=== PATIENT | male | born 1935 | race Caucasian/White ===

== ENCOUNTER 2016-06-23 20:59 | Inpatient (IN) | payer MEDICARE ==
[~2016-06-23] VITALS: Ht 175.3 cm; Wt 76.0 kg
--- NOTE | ~2016-06-23 | FD ---
ADMIT: 06/23/2016 RM/LOC: 510 [facility] MR#: [id number] [address] [address] NAIMAROD [address] [place] [address] Final Diagnosis SEX: M AGE: 81 : 1935 ADMISSION DATE: 06/23/2016 DISCHARGE DATE: 06/25/2016 REASON FOR HOSPITALIZATION/FINAL DIAGNOSES: 1. Acute influenza. 2. Chronic kidney disease. 3. Hypokalemia. 4. Hypothyroidism. Delvin Rivas DO/ modl JOB #: [id number] CC: Delvin Rivas DO, Attending Physician Delvin Rivas DO, Family Physician
--- NOTE | 2016-06-25 09:10 | ER ---
ADMIT: 06/23/2016 RM/LOC: 510 [facility] MR#: [id number] [address] [address] ROD MCNAMARA [address] [place] [address] Emergency Room Report SEX: M AGE: 81 : 1935 DATE: 06/23/2016 TIME: 2058 Please refer to my T-sheet for complete H and P. HISTORY OF PRESENT ILLNESS: Briefly, the patient is an 81-year-old who comes in with general weakness, cough, not feeling well, fever. It has been going on for about 3 or 4 days. He just cannot hardly get up and around he states. His significant other is here with him. She states that he is just getting weaker and weaker. He coughs all time, but he has been coughing a lot worse recently. PHYSICAL EXAMINATION: VITAL SIGNS: Blood pressure 150/77, pulse 111, respirations 20, temp 101.7, saturating 92%. GENERAL: No acute distress. HEENT: Mild rhinorrhea. THROAT: Clear. NECK: Soft, supple. No meningismus. LUNGS: Coarse with expiratory wheezes. HEART: Tachy. ABDOMEN: Soft. SKIN: No rash. EMERGENCY DEPARTMENT COURSE: We did a sepsis protocol, gave him 1 g of Tylenol. Gave him the sepsis fluids IV. His CBC was normal except for platelets 136. Chemistries normal except potassium 3.6, BUN 33, glucose 113, creatinine 1.5. Cardiac enzymes are negative. Influenza B was positive. Chest x-ray revealed left lower lobe atelectasis. EKG was sinus rhythm at 110. No hyperacute changes. I started sepsis pathway, gave him Tamiflu and Levaquin, he will be admitted. ASSESSMENT: 1. Acute influenza B. 2. Left lower lobe pneumonia. 3. Weakness and early sepsis. PLAN: Admit to the hospital under the care of Dr. Rivas. Delfino Cesar MD/ rajiv JOB #: [id number] CC: Delvin Rivas DO, Attending Physician Delvin Rivas DO, Family Physician
[2016-06-26] MEDS ORDERED: DELTASONE DPS5 MG PO (06:23)
[2016-06-26] MEDS ORDERED: MULTIVITAMINS1 EAC1 PO (06:23)
[2016-06-26] MEDS ORDERED: TRIAMTERENE-HC1 EACH PO (06:24)
[2016-06-26] MEDS ORDERED: LEVOTHYROXINE50 MCG PO (06:24)
[2016-06-26] MEDS ORDERED: OCUVITE SOFTGE1 EACH PO (06:25)
[2016-06-26] MEDS ORDERED: TAMIFLU30 MG PO (06:25)
--- NOTE | 2016-07-08 08:17 | HP ---
ADMIT: 06/23/2016 RM/LOC: 510 [facility] MR#: [id number] [address] [address] ROD MCNAMARA [address] [place] [address] History and Physical SEX: M AGE: 81 : 1935 DATE OF SERVICE: 06/24/2016 REASON FOR HOSPITALIZATION: Influenza. HISTORY OF PRESENT ILLNESS: This is an 81-year-old, male patient, who came into the emergency room after three days of general cough, fever, and weakness. He reports that he did not receive a flu vaccination in the fall of 2015 and we have diagnosed him with influenza B with presumed underlying pneumonia. However, he does have a chronically elevated right hemidiaphragm. He also has a history of coronary artery disease, psoriasis, gout, cholecystectomy, and hypertension. MEDICATIONS: His medications are being compiled. I do not have a list to review at this time. SOCIAL HISTORY: He is . Does not smoke. FAMILY HISTORY: Noncontributory. REVIEW OF SYSTEMS: No chest pain. He has had cough, some shortness of breath. No nausea, vomiting, palpitations, diarrhea, constipation, or bleeding. PHYSICAL EXAMINATION: GENERAL: He is pleasant and reports that he is better. VITAL SIGNS: His temperature max 101.2. Temperature current 99.6. HEART: Regular. LUNGS: Bibasilar rales. ABDOMEN: Soft and nontender. EXTREMITIES: No edema. LABORATORY DATA: Potassium 3.6, creatinine 1.5. Hemoglobin 15.8, white count 7.5. Influenza B testing is positive. Chest x-ray, elevated right hemidiaphragm. IMPRESSION: 1. Acute influenza with renal insufficiency. 2. Dehydration. PLAN: Admit, hydrate, Tamiflu to cover for bacterial infection/pneumonia. Recheck creatinine and chest x-ray and monitor. Delvin Rivas DO/ modl JOB #: [id number] CC: Delvin Rivas, Attending Physician Delvin Rivas, Family Physician
== END 2016-06-25 11:40 | disposition home or self-care (01) | DRG 195 ==
LOC: ER 20:59 → 5MS 22:07 → ER 22:07 → 5MS 06-25 11:40
PROVIDERS: ADMIT Internal Medicine
DX: J10.00 Influenza due to other identified influenza virus with unspecified type of pneumonia (principal); E86.0 Dehydration; I25.10 Atherosclerotic heart disease of native coronary artery without angina pectoris; L40.9 Psoriasis, unspecified; M10.9 Gout, unspecified; I10 Essential (primary) hypertension; Z66 Do not resuscitate

== ENCOUNTER 2016-07-04 23:05 | Emergency (ER) | payer MEDICARE ==
[~2016-07-04 23:05] MED LIST: DELTASONE DPS5 MG PO; LEVOTHYROXINE50 MCG PO; MULTIVITAMINS1 EAC1 PO; OCUVITE SOFTGE1 EACH PO; TAMIFLU30 MG PO; TRIAMTERENE-HC1 EACH PO
--- NOTE | 2016-07-05 06:38 | ER ---
ADMIT: 07/04/2016 RM/LOC: ER [facility] MR#: [id number] [address] [address] ROD MCNAMARA [address] [place] [address] Emergency Room Report SEX: M AGE: 81 : 1935 DATE: 07/04/2016 HISTORY OF PRESENT ILLNESS: The patient is an 81-year-old male complaining of acute onset of lower abdominal pain past 2 hours, associated with nausea, but denies any fevers, chills, vomiting, diarrhea, anorexia or prior history of diverticulitis. States his last bowel movement was approximately 3 days ago, hospitalized 2 weeks ago for influenza. PHYSICAL EXAMINATION: Exam remarkable for nontoxic, afebrile male, acutely tender suprapubically. LABORATORY AND X-RAY DATA: Bladder scan, less than 200 mL. WBC 15.2, lactic 2.3, CRP 0.78. Creatinine 1.5, glucose 127. UA negative, troponin less than 0.015. Procalcitonin less than 0.05. MEDICAL DECISION MAKING: EKG showed sinus rhythm without ST-T or Q-wave change. Chest x-ray showed elevated right hemidiaphragm. No infiltrates. CT chest, abdomen, pelvis without contrast confirms no pneumonia, but inflammatory changes noted in the lower sigmoid colon with extensive diverticulosis. Patient was treated for diverticulitis with Invanz 1 g IV piggyback, Dilaudid 0.5 mg IV push for pain with slight improvement. Acetaminophen 1 g IV piggyback with marked improvement. Home with Cipro 500 mg b.i.d. x7 days and Flagyl 500 mg t.i.d. x7 days. Clear liquid diet. Advance as tolerated. Tylenol and Motrin as needed. Follow up Dr. Rivas next week. Return to ED if needed. Derrick Colmenares MD/ rajiv JOB #: [id number] CC: Derrick Colmenares MD, Attending Physician Delvin Rivas DO, Family Physician Delvin Rivas DO
== END 2016-07-05 04:05 | disposition home or self-care (01) ==
LOC: ER 23:05
PROC: 0T9B30Z Drainage of Bladder with Drainage Device, Percutaneous Approach (ICD-10-PCS; principal; 2016-07-04)
DX: K57.92 Diverticulitis of intestine, part unspecified, without perforation or abscess without bleeding (principal); I10 Essential (primary) hypertension; Z87.01 Personal history of pneumonia (recurrent)

== ENCOUNTER 2016-07-06 02:26 | Inpatient (IN) | payer MEDICARE ==
[~2016-07-06] VITALS: Ht 175.3 cm; Wt 82.8 kg
--- NOTE | 2016-07-06 20:02 | ER ---
ADMIT: 07/06/2016 RM/LOC: 420 [facility] MR#: [id number] [address] [address] ROD MCNAMARA [address], [place] [address] Emergency Room Report SEX: M AGE: 81 : 1935 DATE: 07/06/2016 CHIEF COMPLAINT: Abdominal pain. HISTORY OF PRESENT ILLNESS: The patient is an 81-year-old male with diverticulitis seen by this physician yesterday. CT confirmed sigmoid diverticulitis. Tolerated Invanz in Department, home with Cipro and Flagyl. Only pain medication recommended was non-steroidal and Tylenol. The patient states the pain is escalated, decreased oral intake. He was hospitalized briefly 06/23 for influenza and pneumonia. PAST MEDICAL HISTORY: ALLERGIES: NONE. MEDICATIONS: Please see nurse's MAR. ILLNESSES: 1. Coronary artery disease. 2. Hypertension. 3. GERD. 4. DJD. 5. Hypothyroidism. 6. Rheumatoid arthritis. OPERATIONS: 1. Cholecystectomy. 2. Hernia repair. 3. Cardiac bypass. 4. T and A. SOCIAL HISTORY: . Retired. Nonsmoker nondrinker. No illicit drugs. FAMILY HISTORY: Negative per chart review. REVIEW OF SYSTEMS: A 12-point review of systems negative. For all other systems, illnesses, or operations except as outlined above. PHYSICAL EXAMINATION: VITAL SIGNS: Temp 98.4, pulse 98, respirations 18, BP 140/70, SaO2 of 85% on room air. GENERAL: Toxic appearing. Non-diaphoretic without jaundice or icterus. HEENT: Normocephalic. No evidence of epistaxis, rhinorrhea, or otorrhea. NECK: Supple without lymphadenopathy or thyromegaly. CHEST: Clear. Breath sounds equal. HEART: Regular rate and rhythm without murmur, gallop, or edema. ABDOMEN: Soft, tender in right lower quadrant without mass or megaly. Bowel sounds hypoactive. EXTREMITIES: No evidence of Homans sign, synovitis, or dermatitis. NEURO: EOMI. PERRLA. No evidence of drift, dysarthria, or ataxia. Gait; ADMIT: 07/06/2016 RM/LOC: 420 [facility] MR#: [id number] [id number] [address] YOSSIROD RAMIREZ [address] [place] [address] Emergency Room Report SEX: M AGE: 81 : 1935 two person assist due to weakness. MEDICAL DECISION MAKING: The patient appears acutely ill compared to yesterday. CT with contrast shows diverticulitis as well as moderate amount of free air. The patient was covered with vancomycin, cefepime, and metronidazole. NG in place. Chest x-ray confirms an NG in stomach. WBC 23.4 up from 13,000 yesterday. CRP 18.2, up from 0.78 yesterday. Creatinine 1.8, lactic 3.7 up from 2.3 yesterday. INR 1.2, lipase 93, procalcitonin 1.55, up from less than 0.05 yesterday, troponin 0.082, BNP 1829. ABG's on 4 L, pH 7.4, pCO2 39.4, pO2 66. BN-peptide 1829, troponin 0.082. EKG shows sinus tachycardia without ST-T or Q wave change. Discussed findings with Dr. Rivas, who agreed and gave orders to nursing staff. Notified Dr. Mathews of admission, and possible need for operative intervention. DIAGNOSIS: Acute peritonitis associated with diverticulitis with perforation. RECOMMENDATION: Admit inpatient PCU for Dr. Rivas. CONDITION: Fair. Patient is a full code. Derrick Colmenares MD/ guccil JOB #: [id number] CC: Jenifer Rivas DO, Attending Physician Delvin Rivas DO, Family Physician Derrick Colmenares MD/ rajiv JOB #: [id number] CC: Delvin Rivas DO, Attending Physician Delvin Rivas DO, Family Physician DO Renan Funk MD
--- NOTE | 2016-07-09 07:57 | HP ---
ADMIT: 07/06/2016 RM/LOC: 420 [facility] MR#: [id number] [address] [address] ROD MCNAMARA [address], [place] [address] History and Physical SEX: M AGE: 81 : 1935 DATE OF SERVICE: HISTORY OF PRESENT ILLNESS: Mr. Mcnamara is an 81-year-old white gentleman, who is a patient of Dr. Delvin Rivas. He presents to the emergency room with abdominal pain, and in evaluation, he was found to have acute sigmoid diverticulosis as well as concerns about perforation and abscess. PAST MEDICAL HISTORY: He has a past medical history of influenza within the last two weeks, history of coronary disease, psoriasis, history of chronic prednisone usage for arthritis, gout, hypertension, status post cholecystectomy, history of known diverticular disease, he has history of hypothyroidism. SOCIAL HISTORY: He is . He does not smoke. FAMILY HISTORY: Noncontributory. MEDICATIONS: 1. Maxzide 25 mg daily. 2. Prednisone 5 mg daily. 3. Levothyroxine 50 mcg daily. 4. Ocuvite. 5. Men's vitamin. REVIEW OF SYSTEM: As per his HPI. With progressive abdominal pain, abdominal discomfort. No known fever. PHYSICAL EXAMINATION: GENERAL: He is alert. HEENT: Exam is normal. HEART: Regular rhythm. LUNGS: Clear, but diminished to auscultation. ABDOMEN: Rounded and tender to touch. It is not soft. Hypoactive bowel sounds. EXTREMITIES: No evidence of edema. ASSESSMENT: Admission of an elderly 81-year-old white gentleman with evidence of: 1. Acute diverticular disease with questionable perforation and possible abscess. 2. History of recent influenza. ADMIT: 07/06/2016 RM/LOC: 420 [facility] MR#: [id number] [address] [address] ROD MCNAMARA [address] [place] [address] History and Physical SEX: M AGE: 81 : 1935 3. History of known coronary disease. 4. History of psoriasis. 5. History of chronic steroid use. 6. History of gout. 7. History of hypertension. 8. History of known diverticular disease. PLAN: At this time, we will admit to [facility], aggressive IV hydration. Surgical consultation, IV antibiotics, get rest in addition stress dose steroids. We will hold his normal routine medications at this time as he is n.p.o. and has an NG tube in place. We will hold his thyroid medicine at this time, resume as appropriate. Kamryn Lechuga MD/ rajiv JOB #: [id number] CC: Delvin Rivas, Attending Physician Delvin Rivas, Family Physician
--- NOTE | 2016-07-11 07:13 | CO ---
ADMIT: 07/06/2016 RM/LOC: 420 [facility] MR#: [id number] [address] [address] ROD MCNAMARA [address] [place] [address] Consultation SEX: M AGE: 81 : 1935 DATE OF CONSULTATION: 07/06/2016 ATTENDING PHYSICIAN: Delvin Rivas CONSULTING PHYSICIAN: Renan Mathews MD HISTORY OF PRESENT ILLNESS: This is an 81-year-old male seen in surgical consultation for Dr. Rivas with complaints of abdominal pain. The patient had the onset of pain 2 days ago. He came to the ER at that point with that complaint. He underwent a CT scan, which demonstrated diverticulitis. He received IV antibiotic therapy and was discharged on oral therapy. The pain worsened within 24 hours to a severe degree. He came to the ER with that complaint. Re-evaluation by CT scan demonstrated small amount of pneumoperitoneum. He also had a leukocytosis at that point and a lactic acidosis. He received IV antibiotic therapy in the ER. IV fluid resuscitation was initiated, and he was admitted with calls placed for consultation. This morning after those measures, he does feel better. He reports his pain is improved this morning from what it was last night. He has remained hemodynamically stable since his admission. PAST MEDICAL HISTORY: Coronary artery disease, gastroesophageal reflux disease, hypertension, degenerative joint disease, and rheumatoid arthritis. PAST SURGICAL HISTORY: Cholecystectomy, hernia repair, coronary artery bypass grafting, tonsillectomy with adenoidectomy. ALLERGIES: NO KNOWN MEDICAL ALLERGIES. CURRENT MEDICATIONS: 1. Oral steroid. 2. Multivitamin. SOCIAL HISTORY: Denies currently smoking or drinking significant alcohol. REVIEW OF SYSTEMS: He does additionally describe nausea associated with the abdominal pain. A 10-point review of systems is otherwise negative for recent change. FAMILY HISTORY: Noncontributory. PHYSICAL EXAMINATION: GENERAL: Rod is alert, oriented, and in no acute distress currently. He has a nasogastric tube in place. VITAL SIGNS: Stable since admission, and he is not tachycardic. Pupils are equal and reactive, and cranial nerves are intact. NECK: Supple, without lymphadenopathy. LUNGS: Diminished in bilateral bases, but otherwise clear. HEART: Regular rate and rhythm without murmur. ABDOMEN: Diffusely tender in the lower abdomen with some guarding. Upper abdomen remains soft. Bowel sounds are hypoactive. ADMIT: 07/06/2016 RM/LOC: 420 [facility] MR#: [id number] [address] [address] ROD MCNAMARA [address] [place] [address] Consultation SEX: M AGE: 81 : 1935 EXTREMITIES: Calves are soft bilaterally. He has varying degrees of ecchymosis about his upper extremities and thinning of the skin. Calves are without tenderness. NEUROLOGIC: There is no focal neurologic deficit. DIAGNOSTIC DATA: CT scan is reviewed, which shows evidence of small amount of pneumoperitoneum. It appears to me that this seems related to the diverticulitis as was seen on his original scan and is still present on the second scan. I will review that with Radiology today for their opinion. IMPRESSION: Perforated diverticulitis. PLAN: I have recommended given that he is symptomatically improved at this point that we continue with IV fluid resuscitation and IV antibiotic therapy. We will continue with serial laboratory analysis and physical exams to see if he has any clinical deterioration. If that occurs, I did discuss with Rod the need for proceeding with surgical intervention, which would likely include colectomy and colostomy. I discussed this in detail with him, and he agrees with that plan. Renan Mathews MD/ rajiv JOB #: [id number] CC: Delvin Rivas, Attending Physician Delvin Rivas, Family Physician
--- NOTE | 2016-08-14 08:17 | DS ---
ADMIT: 07/06/2016 RM/LOC: 420 [facility] MR#: [id number] [address] [address] ROD MCNAMARA [address] [place] [address] Discharge Summary SEX: M AGE: 81 : 1935 ADMISSION DATE: 07/06/2016 DISCHARGE DATE: 07/10/2016 REASON FOR HOSPITALIZATION: Abdominal pain. HISTORY: This is an 81-year-old male patient, recently suffered from an acute influenza presented back to the emergency room with abdominal pain and was found to have an acute sigmoid diverticulitis as well as possible perforation and abscess. HOSPITAL COURSE: He was admitted and Dr. Lechuga performed his initial assessment and arranged for IV antibiotic therapy, fluids, monitoring pain management, and surgical consultation. He was kept DNR per his previous wishes. We monitored his CKD. Dr. Mathews saw the patient and initially we opted to have him undergo conservative management. We did give him ongoing antibiotic, replaced electrolytes and elements such as calcium, potassium, and phosphorus. We were able to advance his diet, and on 07/09, he was improving and we began to make arrangements for transfer to correction unit. He was transferred on 07/10 with a diagnosis of perforated diverticulitis with peritonitis, treated with conservative antibiotic management; sepsis; hypokalemia; hypophosphatemia and hypocalcemia. He was return to see me in 2 weeks as well as followup with Dr. Mathews. He was also placed on a prednisone taper. Delvin Rivas DO/ rajiv JOB #: [id number] CC: Delvin Rivas DO, Attending Physician Delvin Rivas DO, Family Physician
== END 2016-07-10 10:00 | DRG 872 ==
LOC: ER 02:26 → 4PCU 04:15
PROVIDERS: ADMIT Internal Medicine
DX: A41.9 Sepsis, unspecified organism (principal); N17.9 Acute kidney failure, unspecified; K57.20 Diverticulitis of large intestine with perforation and abscess without bleeding; E83.39 Other disorders of phosphorus metabolism; E83.51 Hypocalcemia; M06.9 Rheumatoid arthritis, unspecified; Z95.1 Presence of aortocoronary bypass graft; I10 Essential (primary) hypertension; S90.821A Blister (nonthermal), right foot, initial encounter; S90.822A Blister (nonthermal), left foot, initial encounter; E87.6 Hypokalemia; I25.10 Atherosclerotic heart disease of native coronary artery without angina pectoris; K21.9 Gastro-esophageal reflux disease without esophagitis; M19.90 Unspecified osteoarthritis, unspecified site; L40.9 Psoriasis, unspecified; M10.9 Gout, unspecified; E03.9 Hypothyroidism, unspecified; Z79.52 Long term (current) use of systemic steroids; Z66 Do not resuscitate

== ENCOUNTER 2016-07-08 14:23 | Inpatient (IN) | payer MEDICARE ==
[~2016-07-08] VITALS: Ht 175.3 cm; Wt 68.3 kg
--- NOTE | ~2016-07-08 | WND ---
ADMIT: 07/10/2016 RM/LOC: Lis[facility] MR#: [id number] [address] [address] ROD MCNAMARA [address] [place] [address] [facility] SEX: M AGE: 81 : 1935 DATE OF VISIT: 07/24/2016 TIME IN: 1525 TIME OUT: 1550 REASON FOR VISIT: Evaluation and treatment of bilateral feet blistering. This is a request for wound care from Dr. Rivas. HISTORY OF PRESENT ILLNESS: This is an 81-year-old male, who was admitted to [facility] from July 06, 2016 through July 10, 2016. He was diagnosed with diverticulitis of the large intestine with perforation. He was followed for IV antibiotics. After transferring to the group home unit, he was noted to have significant edema to his bilateral lower extremities. He developed one bulla and then several more after that. Current treatment has been Mepilex border that is changed due to increased drainage. Nursing staff reports that the edema has decreased significantly. He has actually lost weight. Wound Care is consulted because of poor healing of the areas. PAST MEDICAL HISTORY: Influenza in 2017, coronary disease, psoriasis, history of chronic prednisone usage for arthritis, gout, hypertension, status post cholecystectomy, history of known diverticular disease, history of hypothyroidism. ALLERGIES: No known medication allergies. CURRENT MEDICATIONS: Per the MAR. Please see the MAR for further details. 1. Deltasone. 2. Lasix. 3. Megace. 4. Melatonin. 5. Protonix. 6. Synthroid. 7. Multivitamins. 8. Lovenox. P.r.n. Medications: 1. Elavil. 2. Maalox. 3. Milk of magnesia. 4. MiraLAX. 5. Surfak. 6. Tums. 7. Tylenol. 8. Ultram. 9. DuoNeb. 10.Dulcolax. 11.Nitrostat. FAMILY HISTORY: Heart disease. ADMIT: 07/10/2016 RM/LOC: [facility] MR#: [id number] [address] [address] NAIMA ROD Cecilia [address] [place] [address] Wound Care Clinic SEX: M AGE: 81 : 1935 SOCIAL HISTORY: He is a high school graduate. He is a former smoker, having quit 40 years ago. Denies any current tobacco or alcohol. No street drug usage. He is and resides in [place] with his spouse. He is retired. REVIEW OF SYSTEMS: He is examined in his hospital room, where he is initially asleep, but awakens to his name. He is alert and oriented x3. He denies any recent fever or chills. No nausea or vomiting. No cough, cold, or chest pain. He states he has pain "all over" that he rates as a 5. He does have pain in the areas on his feet whenever they are touched or when they are open to air, they do sting. PHYSICAL EXAMINATION: VITAL SIGNS: Temperature 96.9, pulse 96, respiration 18, blood pressure 115/57, O2 sats on room air is 97%. Weights according to the records show that his weight was up to 184 on July 09 and on July 24, it is 152. Focused exam is to bilateral lower extremities. On the right lower extremity foot circumference 25 cm, ankle is 25 cm, and calf 20 cm, malleolus 25.5 cm. Posterior tibialis is 1+. Dorsalis pedis is 2+. He has fine varicosities noted. No edema appreciated. On the lateral ankle area under the malleolus is a superficial ulceration that measures 3 cm x 6.5 cm. It has a red moist base. There is small amount of peeling epithelium at the edge. On the dorsal surface of his foot under his toes is an ulceration that is 4.1 x 7.5 superficial skin surface with red moist wound base. A small amount of peeling epithelium noted at wound edges. No surrounding erythema or induration to either wound. Serous drainage noted on the old dressing. The left lower extremity foot circumference is 24.5 cm, ankle is 21 cm, and calf 20 cm, malleolus is 28.5. Posterior tibialis is 1+. Dorsalis pedis is 2+. No edema noted. Fine varicosities noted. He does have scarring on his right leg from previous surgery. On the dorsal surface of his foot, there is a superficial ulceration that measures 2 cm x 3 cm with small amount of peeling epithelium at the edges. On the medial ankle area is an ulceration at 3.5 x 6 cm. The 75% of the wound base has the epithelium attached and 25% is opened and it is red and moist. On the lateral ankle area is an ulceration that measures 3 cm x 4.5 cm superficial skin surface with a red, moist wound base. Serous drainage noted on the old dressings. ASSESSMENT: Bilateral feet deflated bullae secondary to edema. TREATMENT PLAN: The old dressings removed without difficulty. The wounds were cleansed gently with warm soapy water, rinsed, and patted dry. A sterile ADMIT: 07/10/2016 RM/LOC: S.326 [facility] MR#: [id number] [address] [place] [address] ROD MCNAMARA [facility] [address] [place] [address] Wound Care Clinic SEX: M AGE: 81 : 1935 scissor was used to trim the peeling epithelium that was not attached to the wound base. Xeroform was applied to all the open areas, covered with 4 x 4s, held in place with Kerlix gauze. Size small EdemaWear is to be applied from the toes to popliteal crease. Requested that his legs be elevated on 2 pillows with heel floating when he is in bed. Also, requested his legs be elevated when he is sitting. I did speak with the patient and encouraged to continue with his protein supplementations. Also Wound Care will continue to follow while he is at group home unit. Thank you for this referral. Maribell Loza APRN/ rajiv JOB #: [id number] CC: Delvin Rivas, Attending Physician UNKNOWN, Family Physician
--- NOTE | 2016-07-11 16:07 | NUR ---
DISCUSSED BLISTER WITH YOEL IN WOUND CARE. SHE RECOMMENDED THAT BLISTERS BE POKED WITH STERILE NEEDLE AND FLUID REMOVED AND ALLOW SKIM TO STAY INTACT. EXPLAINED TO PT AND AND PROCEDURE PERFORMED. PT VOICED SOME DISCOMFORT BUT TOLERATED WELL. VASELINE GAUZE APPLIED TO AREAS WITH MEPILEX COVERING
--- NOTE | 2016-07-17 14:00 | NUR ---
INTERVIEW FOR MDS 3.0-PT. IS IN HIS RECLINER, STATES DOES NOT FEEL WELL TODAY BUT WOULD LIKE SOMEONE TO VISIT WITH. PT. STATES BEFORE COMING INTO THE HOSPITAL, HE WAS INDEPENDENT AT HOME, CARED FOR HIMSELF AND HIS , HE HELPED HER PREPARE THE MEALS, STILL DRIVES A CAR, COULD FEED AND DRESS HIMSELF. SINCE HOSPTIALIZATION AND HERE AT [facility], NEEDS ASSIST WITH TRANFERING, AMBULATING, NEEDS HELP AFTER TOILETING. WEAK AND TIRED. NOT EATING WELL. WHEN ASKING PT. ABOUT IF HE FELT HE WAS DEPRESSED, HE STATES YES, I WANT TO BE HOME WITH MY OF 60 YEARS, BUT KNOWS HE NEEDS TO BE STRONGER. STATES HIS COMES IN AROUND 3PM AND STAYS ABOUT 4 HOURS WITH HIM, HE STATES HE LIKES THAT. STATES HIS APPETITE IS NOT GOOD, HAS NO INTEREST IN THE FOOD AND NO APPETITE, STATES IF HE EATS ITS ONLY A FEW BITES. (VISITED WITH DIETARY, AND ENSURE PUDDINGS AND CARNATION INSTANT BREAKFAST HAS BEEN ORDERED, I SENT A FAX TO [facility] FOR A APPETITE STIMULENT IF PHYSCIAN IS IN AGREEMENT). STATES HE GOES TO SLEEP FOR ABOUT 2-3 HOURS THAT WAKES UP AND IS UNABLE TO SLEEP. (PT. IS ON MELATONIN AT FOR SLEEP). STATES ITS IMPORTANT TO CHOOSE THE CLOTHES HE WANTS TO WEAR, LIKES TO SHOWER, LIKES TO HAVE HIS FAMILY HERE FOR ANY MEDICAL DECISIONS. NOT IMPORTANT TO LOCK UP HIS PERSONEL ITEMS, TO HAVE SNACKS INBETWEEN MEALS, TO USE THE PHONE IN PRIVATE OR CHOOSE WHAT TIME HE GOES TO BED. 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 LIKES TO KEEP UP WITH THE NEWS, DOES NOT CARE THAT MUCH FOR PETS, OCCASSIONALLY LISTENS TO MUSIC, ACTIVE IN THE YAZDANISM, LIKES GROUP ACTIVITIES, ENJOYS GETTING OUTSIDE FOR FRESH AIR AND FAVORITE THING TO DO IS WATCH JUDGE GODWIN AND DR. TAYLOR ON TV. HIS GOAL IS TO GO HOME, STATES THATS THE BOTTOM LINE. STATES HE KNOWS HE NEEDS TO GET STRONGER AND WE TALKED ABOUT IMPORTANCE OF EATING FOR THE ADDITIONAL NUTRIENTS AND PROTEIN IT OFFERS. HE UNDERSTANDS AND HOPES WE GET HIM STRONGER TO GO HOME WITH HIS . STATES HIS PAIN IS AROUND A 1 OR A 2, INDICATES IN HIS RT LOWER ABD, COMES AND GOES HE STATES. SOMETIMES AFFECTS HIS SLEEP BUT DOES NOT AFFECT HIS THERAPY. [facility] IN [place]. [facility], THEY HAVE 4 BOYS, 15 GRAND CHILDREN AND 5 GREAT GRANDCHILDREN. STATES THIS MORNING HE HAD SOME LITTLE PASTRIES AND HE PUT BUTTER ON THEM AND THEY WERE VERY GOOD. THANKED PT. FOR NICE VISIT AND INTERVIEW, I WOULD RETURN WITH ANY NEWS ON A APPETITE STIMULENT OR THE ENSURE PUDDINGS. PT. ASKED IF I COULD COME AND VISIT HIM AGAIN. STATES HE IS TREATED VERY WELL HERE BY EVERYONE.
== END 2016-07-27 16:10 | disposition short-term general hospital (02) | DRG 392 ==
LOC: SNU 14:23
PROVIDERS: ADMIT Internal Medicine
PROC: F08Z4ZZ Home Management Treatment (ICD-10-PCS; principal; 2016-07-10)
PROC: F07Z9ZZ Gait Training/Functional Ambulation Treatment (ICD-10-PCS; principal; 2016-07-10)
DX: K57.20 Diverticulitis of large intestine with perforation and abscess without bleeding (principal); M06.9 Rheumatoid arthritis, unspecified; Z95.1 Presence of aortocoronary bypass graft; I10 Essential (primary) hypertension; I25.10 Atherosclerotic heart disease of native coronary artery without angina pectoris; K21.9 Gastro-esophageal reflux disease without esophagitis; M19.90 Unspecified osteoarthritis, unspecified site; S90.821D Blister (nonthermal), right foot, subsequent encounter; S90.822D Blister (nonthermal), left foot, subsequent encounter; X58.XXXD Exposure to other specified factors, subsequent encounter; L40.9 Psoriasis, unspecified; M10.9 Gout, unspecified; E03.9 Hypothyroidism, unspecified; Z79.52 Long term (current) use of systemic steroids; Z66 Do not resuscitate

== ENCOUNTER 2016-07-27 13:14 | Inpatient (IN) | payer MEDICARE ==
[~2016-07-27] VITALS: Ht 175.3 cm; Wt 75.5 kg
--- NOTE | ~2016-07-27 | ECH ---
Transthoracic Echocardiography Report (TTE) Demographics Patient Name ROD MCNAMARA Date of Study 07/30/2016 Patient Number [id number] Visit Number [id number] Date of 1935 Room Number 309 Accession Number [id number] Gender Male Age 81 year(s) Referring Rob Cerna MD Charge Loader Trinh Ruvalcaba [facility] Physician Mary Craig MD Physician Interpreting Lien Alvarez Production Tester Physician Supervising Ordering Physician Mary Craig MD/ROGELIO LARA Nurse Stress Bus Or Truck Garage Mechanic Conclusions Contractility Score Summary At rest the following contractility abnormalities were noted: Hypokinesis of the Mid anterior, the Mid brianna-septal, the Basal brianna-septal, the Apical anterior, the Basal anterior and the Apical cap segments. Contractility of all other segments appeared normal. Summary Technically adequate exam. The estimated left ventricular ejection fraction is 45%. Normal right ventricle structure with reduced function. The left atrium is mildly dilated by LA volume index measurement. There is mild aortic regurgitation by color Doppler. Recommendation The patient will be given the results of this study by the physician who ordered the exam. Procedure Type of Study TTE procedure:Echo Complete SF. Procedure Date Date: 07/30/2016 Start: 08:31 AM Technical Quality: Adequate visualization Indications:Atrial fibrillation, Elevated Troponin, Hypotension, Coronary artery disease, Hypertension and History of CABG. Appropriate Use Criteria: 9 Height: 69 inches Weight: 166 pounds BSA: 1.91 m Rhythm: Within normal limits HR: 94 bpm BP: 426/59 mmHg M-Mode/2D Measurements LV Diastolic Dimension: 4.32 cm LV Systolic Dimension: 2.88 cm LV Septum Diastolic: 1.04 cm LV PW Diastolic: 1.01 cm AO Root Dimension: 3.13 cm Cardiac Output: 4.96 l/min LA Dimension: 4.71 cm Cardiac Index: 2.6 l/min*m RV Diastolic Dimension: 5.12 cm LA volume index: 35 ml/m LVOT: 2.04 cm LVOT VTI: 16.14 cm RV Base: 3.2 cm LV Stroke volume: 52.73 ml RV Mid: 2.2 cm LV Stroke volume index: 27.61 ml/m TAPSE: 0.9 cm TDI-S': 9 cm/s Doppler Measurements AV Peak Velocity: 1.4 m/s MV Peak E-Wave: 1.1 m/s AV Peak Gradient: 7.84 mmHg MV Peak A-Wave: 0.75 m/s AV Mean Gradient: 4.68 mmHg MV E/A Ratio: 1.46 LVOT Peak Velocity: 0.94 m/s MV P1/2t: 40.5 msec AV Area (Continuity):2.11 cm AV P1/2t: 393.6 msec MV Deceleration Time: 140.9 msec TR Velocity:2 m/s MV Area (PHT): 5.44 cm TR Gradient:16 mmHg PV Peak Velocity: 0.89 m/s Estimated RAP:8 mmHg PV Peak Gradient: 3.18 mmHg Estimated RVSP: 24 mmHg Estimated PASP: 24 mmHg E' Lateral Velocity: 0.12 m/s A' Lateral Velocity: 0.1 m/s RA Area: 14.58 cm Findings Left Ventricle Normal left ventricle size and function. Diastolic assessment reveals normal relaxation. Right Ventricle Normal right ventricle structure with reduced function. Left Atrium The left atrium is mildly dilated by LA volume index measurement. Right Atrium Normal right atrial size. Mitral Valve Normal mitral valve structure and function. Trivial mitral regurgitation by color Doppler. Aortic Valve The aortic valve is moderately sclerotic. There is mild aortic regurgitation by color Doppler. Tricuspid Valve Normal tricuspid valve structure and function. Mild tricuspid regurgitation by color Doppler. Normal pulmonary pressures. Pulmonic Valve Normal pulmonic valve structure and function. Trivial pulmonic valve regurgitation by color Doppler. Pericardial Effusion No evidence of pericardial effusion. Miscellaneous Visualized portions of the aortic root and ascending aorta appear normal in size. Pleural Effusion No evidence of pleural effusion. Contractility Score LV regional wall motion:(0-Non visualized 1-Normal 2-Hypokinesis 3-Akinesis 4-Dyskinesis 5-Aneurysm) Signature
--- NOTE | ~2016-07-27 | WND ---
ADMIT: 07/27/2016 RM/LOC: 309 [facility] MR#: [id number] [address] [address] ROD MCNAMARA [address] [address] Wound Care Clinic SEX: M AGE: 81 : 1935 DATE OF VISIT: 07/30/2016 TIME IN: 1030 hours. TIME OUT: 1040 hours. HISTORY OF PRESENT ILLNESS: This is an 81-year-old male, who was seen by Wound Care for the first time on 07/24/2016. He had been in inpatient [facility] from 07/05/2016 through 07/10/2016. He had diverticulitis of the large intestine with suspected perforation. He was given IV antibiotics. He transferred to the [facility] unit on 07/10/2016, at which time, he had significant edema in his bilateral lower extremity. He developed blisters over both of his lower feet. While at the [facility] unit, he had Xeroform applied that was changed daily. He was seen in the emergency room on 07/27/2016 with increasing abdominal pain. A CT scan showed that he had a 7.5 cm abscess in his colon. Therefore, he was seen by Dr. Singh, who took him to surgery on 07/27/2016. At that point in time, exploratory laparotomy with sigmoid colon resection and end colostomy was performed. He also had a right hemicolectomy with ileocolic anastomosis. During this surgery, he was found to have a large amount of pus and fecal contamination in the abdomen as well as intraabdominal sepsis and abscess related to the probable perforated diverticulitis. He is followed by Infectious Disease, Dr. Vivas. Wound Care was consulted for ostomy cares. PAST MEDICAL HISTORY: Sepsis, perforated colon, probable diverticula with intraabdominal abscess. Acute kidney injury. Severe malnutrition. History of coronary artery disease with multiple vessel bypasses. Chronic inflammatory arthritis. Psoriatic arthritis, on chronic steroids. History of hypothyroidism. Influenza in 2017. Hypertension. Status post cholecystectomy. ALLERGIES: No known medication allergies. CURRENT MEDICATIONS: Per the MAR. Please see the MAR for further details. 1. DuoNeb. 2. Cordarone. 3. Levophed. 4. Pepcid. 5. Solu-Cortef. 6. Synthroid. 7. Vancocin. 8. Zosyn. PRN medications: 1. Benadryl. 2. Compazine. 3. Elavil. 4. Tylenol. 5. Ultram. ADMIT: 07/27/2016 RM/LOC: 309 [facility] MR#: [id number] [address] [address] ROD MCNAMARA [address] [place] [address] Wound Care Clinic SEX: M AGE: 81 : 1935 6. DuoNeb. 7. Tylenol suppository. 8. Nitrostat. 9. Nitro-Bid. 10.Benadryl. 11.Dilaudid. 12.Lopressor. 13.Morphine. 14.Narcan. 15.D5W. 16.Phenergan. 17.Zofran. SOCIAL HISTORY: He is a high school graduate. Former smoker, having quit 40 years ago. No current alcohol or tobacco use. No street drug usage. He is . His resides in [place]. He is retired. Currently had been staying at [facility] unit at [facility]. FAMILY HISTORY: Heart disease in his parents. REVIEW OF SYSTEMS: He is examined in his hospital room where he is sleepy. He is having noisy respirations. When asked, he states his abdomen does not hurt. Unable to obtain any other information due to his current health status. PHYSICAL EXAMINATION: Focused exam is to his abdomen. He does have a midline incision intact with mario with bloody drainage noted on the dressing. To his left lower quadrant is his stoma that is oval in shape. It measures 3 cm x 4.5 cm, flat. Mucocutaneous junction is intact without separation. The stoma itself is dusky deep red in color. 20 mL of dark brownish effluent in the pouching system. ASSESSMENT: End colostomy, status post hemicolectomy due to ruptured diverticula. TREATMENT PLAN: The old pouch was removed without difficulty. Water only was used to wash peristomal area. No Sting Barrier wipe was applied, peristomal area. [employer] New image 2 piece 70 mm wafer #[id number] with pouch #[id number] was placed over the stoma. Orders were written to change the wafer and pouch ADMIT: 07/27/2016 RM/LOC: 309 [facility] MR#: [id number] [address] [place] [address] ROD MCNAMARA [address] [place] [address] Wound Care Clinic SEX: M AGE: 81 : 1935 every 3 to 4 days and p.r.n. leakage. Empty the pouch when it is 1/3rd full. Information packet around ostomies was sent home with the family. However, because of his declining condition and recently developed atrial fib and history of a non STEMI, talk is being done among the medical team and the family about comfort cares. For that reason, his feet were not examined today. We will continue with the Mepilex Borders to his feet that are currently being done. According to the note by the nurses, the blisters just have a scant amount of drainage at this time, so Mepilex Borders will be significant for absorption as well as protection. Thank you for this referral and Wound will continue to follow along. Maribell Loza APRN/ rajiv JOB #: [id number] CC: Delvin Rivas, Attending Physician [facility]-[place] Physician, Family Physician
--- NOTE | 2016-07-29 06:52 | CO ---
ADMIT: 07/27/2016 RM/LOC: 309 [facility] MR#: [id number] [id number] [address] ROD MCNAMARA [address] [address] Consultation SEX: M AGE: 81 : 1935 DATE OF CONSULTATION: 07/28/2016 ATTENDING PHYSICIAN: Delvin Rivas CONSULTING PHYSICIAN: Gallito Rogers MD HISTORY OF PRESENT ILLNESS: Mr. Mcnamara is an extremely pleasant, 81-year-old white male with a number of medical issues. He had previously been hospitalized in late june with increasing abdominal pain and probable perforated diverticulum. At that time, it was felt that possibly conservative therapy would be an option, he was apparently treated with IV antibiotics. He was then transferred out of the hospital, and I believe was in a nursing care unit. However, he was admitted to the hospital through the Emergency Department on 07/27/2016. He was having increasing abdominal pain and potentially a low blood pressure. He had a CT scan of his abdomen which showed probable perforation with some free air in the abdomen, and a 7.5 cm lower abdominal/pelvic abscess. He was noted to have some mild hypotension and tachycardia, responded well to IV fluids. Surgical consultation was obtained and he was brought to the operating room by Dr. Pancho Singh. He was noted to have a large amount of pus and fecal material within the abdomen intraabdominal space, from a probable perforated diverticulitis. He underwent exploratory laparotomy with extensive lysis of adhesions, sigmoid colon resection with an end colostomy, and a right hemicolectomy with an ileocolic anastomosis. The surgery was quite extensive. Postoperatively, he was monitored in the intensive care unit, remained tachycardic and has also been hypotensive. He has received over 5800 mL of IV fluids, and still was running low blood pressures. He was seen in consultation. At the time he was seen, he was awake and alert. Complained of abdominal pain, but very coherent. He subsequently has been started on ephedrine, blood pressure is better. He has also had low urine output. Having some abdominal pain as mentioned above. PAST MEDICAL HISTORY: Significant for coronary artery disease. Previous multivessel coronary bypass in 1985. He has history of some form of inflammatory arthritis which may be psoriatic arthritis, is on chronic prednisone. He has history of gout, hypertension. He has had previous cholecystectomy. He also has hypothyroidism. ALLERGIES: HE HAS NO KNOWN LISTED MEDICAL ALLERGIES. MEDICATIONS: Listed in electronic medical records. At admission include: 1. Prednisone 5 mg daily. 2. Lasix 40 mg daily. 3. Megace 800 mg daily. 4. Melatonin 3 mg at bedtime. 5. Protonix 40 mg daily. 6. He is also on Synthroid 50 mcg daily. ADMIT: 07/27/2016 RM/LOC: 309 [facility] MR#: [id number] [id number] [address] ROD MCNAMARA [address] [place] [address] Consultation SEX: M AGE: 81 : 1935 7. Ocuvite multivitamin. SOCIAL HISTORY: Former smoker, quit over 40 years ago. . Had previously been living at home with his , though I believe now was brought in from halfway facility. FAMILY HISTORY: Noncontributory. REVIEW OF SYSTEMS: As above. All organ systems were reviewed. Significant positives and negatives discussed above. Additionally, was noted to have a number of bilateral blistering lesions on his feet as well as probable stasis ulcers. He has been followed by wound care for this. PHYSICAL EXAMINATION: VITAL SIGNS: Currently afebrile, blood pressure 96/36, pulse 116, oxygen saturation 96% on low-flow oxygen. GENERAL: This is a well-developed, well-nourished, pleasant elderly white male, currently in no acute respiratory distress. He is having abdominal pain from his surgery. HEENT: Within normal limits. NECK: Supple. CHEST: Reveals decreased diaphragm excursion, but is otherwise clear without significant rales, rhonchi, or wheezes. HEART: Tachycardic. No murmur. ABDOMEN: Reveals postop changes. He has left lower quadrant colostomy. Incision is dressed and stapled as well as packing around it. No drain is in place. Absent bowel sounds noted. EXTREMITIES: Reveal cool extremities to touch. Peripheral pulses are scant. He has a ruptured bullae on his feet. Right foot is dressed. Left foot has what appears to be a 3-cm stasis ulcer. NEUROLOGICAL: He is awake, alert, and oriented. Mood and affect are appropriate. LABORATORY DATA: Review of labs and x-rays through the electronic medical record is noted. This morning labs reveal white blood cell count of 15.6 with a hemoglobin 11.1, hematocrit 34.1, and platelets 260,000. Electrolytes; BUN creatinine were noted. Carbon dioxide level 21, creatinine of 1.8 with a BUN of 38. Anion gap 17. Albumin was low at 1.8 and total serum protein is severely low at 4.7. Cultures are pending. Chest x-ray shows elevation of right hemidiaphragm. ASSESSMENT: He has acute symptoms of sepsis manifested by hypotension and tachycardia. He has been somewhat fluid responsive, but with addition of fluids, will need some IV albumin and ephedrine to maintain his mean arterial pressures 65 or above. He has perforated colon (probable diverticula) with a complex intraabdominal ADMIT: 07/27/2016 RM/LOC: 309 [facility] MR#: [id number] [id number] [address] ROD MCNAMARA [facility] [address] [place] [id number] Consultation SEX: M AGE: 81 : 1935 abscess accounting for his sepsis. He has undergone extensive surgery for this detailed above and everything appears intact and functional. He has acute kidney injury, although the creatinine now is 1.8, however, he has low urine output. We will continue with fluid resuscitation monitoring his creatinine. He has severe malnutrition. As mentioned, I will give him some albumin, but likely will need to start on TPN tomorrow. He has history of coronary artery disease with previous multivessel bypass in 1985. No acute symptoms. He has history of chronic inflammatory arthritis which I believe may be psoriatic arthritis, he has been on chronic steroids. Because of the chronic steroid use, he is relatively immunocompromised and adrenally suppressed. Give him stress dose Solu-Cortef. Once his condition stabilizes, we would like to wean that fairly quickly to avoid problems with healing and in light of renal insufficiency. He has history of hypothyroidism on replacement. Because of his n.p.o. status, we will convert his Synthroid to IV and adjust the dose accordingly. He has been started on IV antibiotics and has been seen by Dr. Vivas. IV antibiotics were adjusted to include vancomycin and Zosyn as well as anti- fungal medication. We will continue to follow here in the ICU with you and further recommendations to follow. Gallito Rogers MD/ rajiv JOB #: [id number] CC: Delvin Rivas, Attending Physician [facility] Physician, Family Physician
--- NOTE | 2016-08-02 11:01 | ER ---
ADMIT: 07/27/2016 RM/LOC: 503 [facility] MR#: [id number] [address] [address] ROD MCNAMARA [address], [place] [address] Emergency Room Report SEX: M AGE: 81 : 1935 DATE: 07/27/2016 ADDENDUM: An 81-year-old white male coming in with abdominal pain. Actually, he was over to skilled care. They had done a CT on him and showed that he had a 7.5 abscess in his colon. He does have advanced diverticulitis which is where this came from. At this time, we ran the sepsis profile on him. He had one episode of low blood pressure, but then he would bounce back up, but since we had 1 episode of it, we went ahead and ran the 30 mL/kg and also gave him Zosyn and Flagyl down here. He is cultured up. His lactate is negative. His white count is up a little bit at 13.7. I did speak with Dr. Vivas, who will admit him. I also spoke with Dr. Sorensen, who will see him in consult for surgery, and he will be admitted. CONDITION ON DISCHARGE: Fair. Juan Antonio Draper MD/ rajiv JOB #: [id number] CC: Delvin Rivas DO, Attending Physician [facility] Physician, Family Physician
--- NOTE | 2016-08-07 11:31 | HP ---
ADMIT: 07/27/2016 RM/LOC: 503 [facility] MR#: [id number] [address] [address] ROD MCNAMARA [address] [place] [address] History and Physical SEX: M AGE: 81 : 1935 DATE OF SERVICE: CHIEF COMPLAINT: Abdominal pain. HISTORY OF PRESENT ILLNESS: Mr. Mcnamara is an 81-year-old man, who was recently discharged from the hospital on July 10, 2016 after being managed for perforated diverticulitis. He had presented with abdominal pain last month, and a CT scan showed diverticulitis. He was managed with IV antibiotics, and his pain worsened and a repeat CT scan showed small amount of pneumoperitoneum and leukocytosis. He was again managed with IV antibiotics and discharged to longterm unit on metronidazole. Since last few days, he complained of severe abdominal pain, and a repeat CT scan now showed a 7.5 cm abscess to the right of midline. In the ER, he was tachycardic and mildly hypotensive and responded well to IV fluids. He did complain of mild diarrhea and denied any nausea or vomiting and at present complains of severe abdominal pain. PAST MEDICAL HISTORY: 1. Coronary artery disease, status post CABG. 2. Psoriasis. 3. History of chronic prednisone use for arthritis. 4. Influenza. 5. Gout. 6. Hypertension. 7. Status post cholecystectomy. 8. Hypothyroidism. SOCIAL HISTORY: He is and lives at home with his . Denies any smoking, alcohol, or recreational drug use. FAMILY HISTORY: Significant for heart disease in his parents. ALLERGIES: NO KNOWN DRUG ALLERGIES. MEDICATIONS: Home medications include: 1. Prednisone 5 mg daily. 2. Lasix 40 mg daily. 3. Megace 800 mg daily. 4. Melatonin 300 mg at bedtime. 5. Protonix 40 mg daily. 6. Ocuvite multivitamin tablet. 7. Synthroid 0.05 mg daily. REVIEW OF SYSTEMS: Ten-point review of systems negative except as mentioned in HPI. PHYSICAL EXAMINATION: VITAL SIGNS: Current temperature 97.4, heart rate 91, blood pressure 126/64, respirations 18, and 99% on room air. GENERAL: In mild distress secondary to abdominal pain. ADMIT: 07/27/2016 RM/LOC: 503 [facility] MR#: [id number] [address] [address] ROD MCNAMARA [address], [place] [address] History and Physical SEX: M AGE: 81 : 1935 HEENT: Head normocephalic and atraumatic. 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 Oral mucosa moist. LYMPHATICS: No palpable anterior/posterior cervical or supraclavicular lymphadenopathy. CHEST: Decreased breath sounds bilaterally. CARDIOVASCULAR: S1 and S2 heard. Regular rate and rhythm. ABDOMEN: There is diffuse guarding and tenderness to palpation mainly in right upper quadrant. Sluggish bowel sounds. SKIN: There is ruptured bulla on bilateral lower extremities. PSYCH: Normal affect. Memory intact. DATA REVIEW: Per HPI. CBC today shows white count 13.7, hemoglobin 13.2, and platelets of 231. Lactic acid is 1.7. CMP shows creatinine of 1.8, and albumin of 2.6. Chest x-ray shows elevation of right hemidiaphragm. ASSESSMENT AND PLAN: 1. Abdominal abscess. 2. Perforated diverticulitis. 3. Sepsis secondary to abdominal abscess. 4. Coronary artery disease. 5. Arthritis on chronic steroids. 6. Hypothyroidism. 7. Acute kidney injury. We will admit him to PCU status, hydrate him aggressively. Surgery consult have already been called, and he will be evaluated by Dr. Singh. He will need I and D of the abscesses as soon as possible or even a hemicolectomy. We will defer to surgery. Will check blood cultures and start him on Zosyn and vancomycin. He just finished a prednisone taper and will continue his maintenance dose. If he becomes hemodynamically unstable, then we will give him stress dose steroids. Shellie Vivas MD/ rajiv JOB #: [id number] CC: Delvin Rivas, Attending Physician [facility]-[place] Physician, Family Physician
--- NOTE | 2016-08-12 12:43 | CO ---
ADMIT: 07/27/2016 RM/LOC: 503 [facility] MR#: [id number] [id number] [address] ROD MCNAMARA [address], [place] [address] Consultation SEX: M AGE: 81 : 1935 DATE OF CONSULTATION: 07/27/2016 ATTENDING PHYSICIAN: Delvin Rivas CONSULTING PHYSICIAN: Pancho Singh MD CHIEF COMPLAINT: Increased abdominal pain and history of perforated diverticulitis. HISTORY OF PRESENT ILLNESS: This is an 81-year-old male patient who was admitted to the hospital in mid to late June. He was treated for diverticulitis at that time with antibiotics. He had a known perforation and free air then, but evidently was not having much pain. So, he was continued on antibiotics and sent over to skilled. He has been on prednisone, which may have also masked some of his symptoms. He had worsening pain today, so he had a repeat CT scan, which showed quite a bit more free air and large abscess. The patient really has not eaten anything. He has been passing some flatus. No nausea, just has no appetite. He does not complain of any fevers or chills. PAST MEDICAL HISTORY: He has chronic arthritis. MEDICATIONS: Well outlined in the chart. He has been on prednisone also. ALLERGIES: I BELIEVE ARE NONE. PAST SURGICAL HISTORY: He has had an open cholecystectomy, and he has also had a previous inguinal hernia repair as well a 5-vessel CABG. SOCIAL HISTORY: He is currently residing at the snf unit, although he had lived at home prior to getting ill with his diverticulitis and previous admission. FAMILY HISTORY: Noncontributory. REVIEW OF SYSTEMS: A 10-point review of systems is negative with the exception of his current abdominal pain. PHYSICAL EXAMINATION: GENERAL: He is alert. He is oriented. He is obviously uncomfortable, but pain is fairly well controlled. VITAL SIGNS: Stable. HEENT: Normal. LUNGS: Clear. HEART: Regular. ABDOMEN: Very rigid, tender throughout, obvious peritoneal signs. He has a large right upper quadrant scar, no hernias there. EXTREMITIES: Warm and pink. He does have some ulcerations though to his feet, which is a little bit unusual even on the dorsum of his foot on the left side in particular. ADMIT: 07/27/2016 RM/LOC: 503 [facility] MR#: [id number] [id number] [address] ROD MCNAMARA [address] [place] [address] Consultation SEX: M AGE: 81 : 1935 DIAGNOSTIC DATA: CT scan performed today reveals quite a bit more free air compared to one on July 06 with large fluid collection in the pelvis, which is likely extraluminal. ASSESSMENT: Perforated diverticulitis with increasing free air, rigid abdomen, and peritoneal signs. PLAN: I have recommended proceeding to the OR for exploratory laparotomy, sigmoid colon resection, and end colostomy. I have gone through the risks and benefits of this procedure in depth with the patient. He does understand all this, and he would like to proceed yet tonight. Pancho Singh MD/ rajiv JOB #: [id number] CC: Delvin Rivas, Attending Physician [facility] Physician, Family Physician
--- NOTE | 2016-08-12 12:43 | OR ---
ADMIT: 07/27/2016 RM/LOC: 309 [facility] MR#: [id number] [address] [address] ROD MCNAMARA [address] [place] [address] Operative/Delivery Room Report SEX: M AGE: 81 : 1935 SURGERY DATE: 07/27/2016 SURGEON: Pancho Singh MD PREOPERATIVE DIAGNOSIS: Free intraabdominal air and abscess, probable ruptured diverticulitis. POSTOPERATIVE DIAGNOSIS: Large amount of pus and fecal contamination in the abdomen with intraabdominal sepsis and abscess, probable perforated diverticulitis versus perforated appendicitis. PROCEDURE PERFORMED: 1. Exploratory laparotomy with sigmoid colon resection and end colostomy (Jessica's procedure). 2. Right hemicolectomy with ileocolic anastomosis. DISTRIBUTION DISTRICT SUPERVISOR: MURRAY Villanueva ESTIMATED BLOOD LOSS: Approximately 500 mL. DESCRIPTION OF PROCEDURE: After appropriate informed consent was obtained, the patient was brought to the operating room. General endotracheal anesthesia was induced. The patient's abdomen was prepped and draped in a sterile fashion. Lower midline incision was created. This was carried deep with cautery. The peritoneal cavity was opened sharply. Once in the abdomen, I encountered a large amount of pus and feculent debris. There were also quite a bit of adhesions up to the abdominal wall that were taken down with a combination of blunt dissection as well as with Natasha scissors. I entered into a large abscess cavity interloop abscess between loops of small bowel. This had alicia pus and feculent material within it. The sigmoid colon was intimately stuck into this abscess as was the distal ileum and cecum, so it was difficult to tell whether this had all originated from a perforated diverticulitis versus a perforated appendicitis. Everything was just stuck together and the planes were very indistinct between the bowel loops and so difficult to even determine where this had all originated, so nonetheless I made preparations to take the sigmoid colon. I divided across the rectosigmoid junction with the KEYLA 75 stapler. I then clamped and divided some of the vessels going up to the sigmoid colon. I then divided across the descending colon above the area of the inflammation and diverticula with another load of the KEYLA 75 stapler. I left that divided end of the bowel subsequently for the ostomy. I then took some time to take down small bowel adhesions. He had just really dense small bowel adhesions as well as small bowel loops making a part of the abscess wall, so it made it difficult to get all the bowel freed up. All the proximal bowel appeared fine, the jejunum and proximal ileum, but the distal ileum was really beat up and inflamed and difficult to tell exactly what was viable and not viable, so I made preparations to do a right hemicolectomy, even dissecting the right colon from the white line of Toldt was difficult. He had a previous open jase, so his hepatic flexure was stuck up over the liver and made it difficult to even ADMIT: 07/27/2016 RM/LOC: 309 [facility] MR#: [id number] [address] [address] ROD MCNAMARA [facility] [address] [place] [address] Operative/Delivery Room Report SEX: M AGE: 81 : 1935 bring that hepatic flexure down, but with some careful dissection, I was able to bring the hepatic flexure down, I was able to identify the duodenum posterior to the colon, the mesentery, and swept this away. The hepatic flexure region of the colon appeared viable and healthy, so I ended up making preparations to divide there for the anastomosis. I clamped and divided the ileocolic vessel and ligated this with 0 Polysorb ties. I then ligated the small bowel vessels up to the portion of the ileum that I was going to remove. I removed about 10-12 inches of distal ileum. With the mesentery all freed up, a [id number] stapled anastomosis was created. A couple of antimesenteric incisions were made on the colon and small bowel. These were brought together and the KEYLA 75 stapler introduced. The [id number] stapled anastomosis was created. I took 2 additional loads of KEYLA 75 stapler to transect across the bowel subsequently closing the enterotomy and removing the specimen. Specimen was handed off. A couple of 3-0 silk sutures were placed in the crotch of the anastomosis and then the crisscrossing staple lines were further oversewed with additional 3-0 silk sutures. Everything appeared hemostatic. I then copiously irrigated out the abdomen with several liters of saline. There really was not any abscess cavity left at this point to place a drain into, so I did not place a drain, instead an ostomy site was created in the left side of the patient's abdomen. The bowel was brought up and out through the ostomy site. The midline fascia was then closed with 2 looped running #1 PDS sutures tied in the middle. His fascia and muscle were just really poor quality and so we took a small bites and tried to make sure I was getting good bites of what fascia he did have. The wound was then copiously irrigated out and the skin loosely closed with skin mario. Telfa gus were then applied between the mario. The ostomy was then matured, cutting away the staple line, and then maturing the ostomy to the dermal layer using several interrupted 3-0 Vicryl suture. Sterile dressing was applied and ostomy appliance were applied around the ostomy site. Juan Antonio Martinez assisted in this entire procedure. His help was necessary for retraction during this very difficult dissection. Pancho Singh MD/ rajiv JOB #: [id number] CC: Delvin Rivas, Attending Physician [facility] Physician, Family Physician DO Shellie Funk MD
--- NOTE | 2016-08-12 14:23 | CO ---
ADMIT: 07/27/2016 RM/LOC: 309 [facility] MR#: [id number] [address] [address] ROD MCNAMARA [address] [place] [address] Consultation SEX: M AGE: 81 : 1935 DATE OF CONSULTATION: 07/29/2016 ATTENDING PHYSICIAN: Delvin Rivas CONSULTING PHYSICIAN: Eduardo Hernandez MD REASON FOR EVALUATION: New onset atrial fibrillation and elevated cardiac biomarkers. HISTORY OF PRESENT ILLNESS: Rod is an 81-year-old, who is new to me. I do not think that we follow him in the clinic. He does have a known history of coronary disease with previous bypass surgery dating back to 1985. I think he receives most of his care through the [facility]. About a month ago in mid to late June, he was diagnosed with a ruptured probable diverticula. Apparently, he was clinically stable and he was treated conservatively with antibiotics. He was at skilled care. He returned to the hospital Friday with increasing pain. He was more acutely ill, and he was taken to the operating room on July 27, 2016, for probable abscess from a ruptured diverticula. He had a large amount of pus and fecal contamination in the abdomen resulting in a sigmoid colon resection with end colostomy and right hemicolectomy with an ileocolic anastomosis. Postoperatively, he has had hypotension and anemia. He has had some bleeding from his ostomy site. He has been hypotensive and did require pressor agents for just a few hours yesterday. He has been persistently tachycardic, but then late this afternoon he went into atrial fibrillation with rapid ventricular response. He has received at least 7 L of fluid. He is hypernatremic. In addition to the new onset atrial fibrillation. Cardiac enzymes are now elevated. His troponin is just over 4. His CK-MB is 17. The history is very difficult from the patient because he is so weak and had discomfort. He says he is not having chest discomfort. He is not having any presyncope, denies any palpitations. He really has no cardiac symptoms currently. He complains of ongoing abdominal discomfort. There is no family available and the ability to get a full history from the patient is difficult as he is so weak and uncomfortable. PAST MEDICAL HISTORY: ALLERGIES: NO KNOWN MEDICAL ALLERGIES. HOME MEDICATIONS: Include: 1. Deltasone daily. 2. Megace 800 daily. 3. Lasix 40 daily. 4. Melatonin 3 mg at bedtime. 5. Protonix 40 daily. 6. Ocuvite daily. ADMIT: 07/27/2016 RM/LOC: 309 [facility] MR#: [id number] [address] [address] ROD MCNAMARA [address] [place] [address] Consultation SEX: M AGE: 81 : 1935 7. Synthroid 50 mcg daily. 8. Multivitamin daily. 9. Elavil p.r.n. 10.Maalox p.r.n. 11.Milk of magnesia. 12.MiraLAX. 13.Surfak. 14.Tums. 15.Tylenol. 16.Ultram. 17.DuoNeb. 18.Dulcolax. 19.Nitroglycerin, all p.r.n. ILLNESSES: Include coronary artery disease with previous bypass surgery, his recent ruptured diverticula. He has some sort of inflammatory arthritis and history of psoriasis, gastroesophageal reflux disease, hypothyroidism, and history of gout. Surgical history is positive for his bypass surgery, previous cholecystectomy before he underwent his abdominal surgery just a few days ago. FAMILY HISTORY: Apparently, his parents had heart disease, but it is unclear to me if this was premature coronary disease. SOCIAL HISTORY: He lives here in town with his . 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 He denies any recent significant smoking or alcohol abuse. REVIEW OF SYSTEMS: Limited and essentially unobtainable because of his weakness. PHYSICAL EXAMINATION: VITAL SIGNS: Blood pressure is 118/61, his pulse is 118, respirations 26, he is mildly febrile at 99.5 currently. His O2 sats are 95% on supplemental oxygen. Skin feels warm. There is good capillary refill, although his pale, and he is overall somewhat pale. No obvious rashes are noted. He could not roll or lift himself up, so I was unable to examine his back. HEENT: Sclerae clear. No xanthelasmas. ENT: There is prominent carotid upstrokes, but no significant JVD, and I do not appreciate any carotid bruits. HEART: Irregularly irregular. I do not appreciate any significant rubs or gallops. There is a soft systolic murmur at the upper sternal borders, but his rate is fast and is hard to delineate, this is aortic in nature. CHEST: Poor respiratory effort. Mildly diminished in the bases, but I do not hear any crackles. There are transmitted upper airway sounds. ABDOMEN: Large surgical bandage. It is not stained currently. There is no further tenderness to very light palpation. I do not hear any bowel sounds. EXTREMITIES: There is mild edema of his upper extremities. Distal pulses are somewhat decreased, but symmetric. 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 Gait is normal. PSYCHIATRIC: He is alert. He answers simple questions with very short and brief answers. He is alert and oriented, but he is clearly in some distress. LABORATORY DATA: Sodium today was 150 with a potassium at 3.2, BUN 33, and creatinine was 1.4. His creatinine was 2.2 on July 26, total bilirubin is 1.9. His AST is 41, ALT is 29, calculated GFR is 46, CK 223 with an MB of 17.6, which gives him an index right about 8. His troponin is 4.25 this evening, it was 0.027 yesterday. His white count is 15.8, hemoglobin is 8.5, and it was 6.8 earlier today, and he has received a transfusion, and platelet count 116,000. Chest x-ray from this morning shows very low lung volumes, increased elevation in the right hemidiaphragm and possible edema. IMPRESSION: 1. Postoperative day 3, status post sigmoid and right hemicolectomy for intraabdominal abscess from probable ruptured diverticulitis. 2. New onset atrial fibrillation with rapid ventricular response. 3. Coronary artery disease status post distant bypass surgery in the . 4. Elevated cardiac biomarkers. 5. Acute kidney injury. 6. Anemia. 7. History of inflammatory arthritis/psoriasis. RECOMMENDATIONS: There is no question that Mr. Mcnamara has risks for postoperative acute coronary syndrome in the setting of an extensive surgery and distant bypass surgery. However, he is not having any anginal-type symptoms, and I am suspecting that this is mostly a demand ischemia. We will trend his enzymes and follow his EKG. Echo in the morning. His atrial fibrillation with rapid ventricular response is also probably a reflection of the physiologic stress. Because of his relative hypotension with rapid ventricular response, I am going to start IV amiodarone mostly for rate control at this point. We will supplement with beta-martin as tolerated ADMIT: 07/27/2016 RM/LOC: 309 [facility] MR#: [id number] [facility] [address] [address] ROD MCNAMARA [address] [place] [address] Consultation SEX: M AGE: 81 : 1935 for his atrial fibrillation, but also for his cardioprotective affects with a possible acute coronary syndrome. I did discuss the possibility of anticoagulation both for his elevated biomarkers and his atrial fibrillation with Dr. Singh. He is concerned because he has had blood from his ostomy site. He would like to hold off for now especially in the setting of his anemia requiring transfusion, but we will re-evaluate depending on his clinical course. He has multisystem involvement, and he is very ill secondary to his intraabdominal abscess. His prognosis is guarded at this point, but we will continue full supportive cares. Eduardo Hernandez MD/ rajiv JOB #: [id number] CC: Delvin Rivas, Attending Physician [facility] Physician, Family Physician
--- NOTE | 2016-10-07 08:35 | DS ---
ADMIT: 07/27/2016 RM/LOC: 309 [facility] MR#: [id number] [address] [address] ROD MCNAMARA [address] [place] [address] General Discharge Summary SEX: M AGE: 81 : 1935 ADMISSION DATE: 07/27/2016 DISCHARGE DATE: 07/31/2016 DATE: 07/31/2016 REASON FOR HOSPITALIZATION: Acute abdomen. HISTORY OF PRESENT ILLNESS: This is an 81-year-old male patient, who had been in the hospital with a perforated diverticula at which time the surgical evaluation was performed and this was felt to be a confined perforation, very small in nature, and that medical management with antibiotics would be appropriate. He had done well until he developed abdominal pain, which progressively worsened along with elevated white blood cell count, and repeat CAT scan showing pneumoperitoneum. This also showed a 7.5 cm abscess in the right midline. He presented and was hypotensive and septic, and Dr. Vivas was on-call and performed his initial assessment and arranged for care. She had Dr. Singh see the patient, who recommended proceeding to the operating room and performing an end colostomy. This was performed and the patient was sent to the intensive care unit for further management where we asked critical- care consultation to be performed, and Dr. Gallito Rogers saw the patient. Prescribed IV Albumin, ephedrine, and fluids and supportive management. The patient had onset of atrial fibrillation and elevated cardiac biomarkers, and Dr. Hernandez was consulted to assist. At this point, he was day #3 postop and continuing to struggle. It was felt that his elevated cardiac enzymes were related to demand ischemia, and he was started on IV amiodarone for rate control and beta martin. The patient also developed some acute kidney injury felt secondary to his underlying sepsis, and hydration was helpful. He does have some degree of chronic kidney disease, underlying. He was anemic. We monitored and managed this with transfusion and he was also given TPN. He on 07/[address] Chavarria to be in a declining state, looking worse. On 07/30, we restarted him on Levophed drip for hypotension. Dr. Vivas continued to monitor and assist with his infectious disease cares. The patient was declining into critical condition and family was ultimately gathering at bedside, and by 9 o'clock on 07/30 family was considering comfort cares, but wanted to wait and gather all family members together for this discussion. On 07/31, the family decided that they would want him to have comfort cares after 24 hours of slow decline. We therefore signed comfort cares and pain management. He was DNR/DNI in status. He ultimately opted to have hospice and . ADMIT: 07/27/2016 RM/LOC: 309 [facility] MR#: [id number] [address] [place], [place] [id number] ROD MCNAMARA [address] [place] [address] General Discharge Summary SEX: M AGE: 81 : 1935 FINAL DIAGNOSES: 1. Perforated diverticula with acute abdomen/peritonitis, status post sigmoid right hemicolectomy. 2. Atrial fibrillation, rapid ventricular response. 3. Acute kidney injury. 4. Anemia. 5. Sepsis. 6. Delirium. 7. Possible acute coronary syndrome/demand ischemia. 8. Intraabdominal abscess. His date of 07/31/2016. Time of 1635 hours. Delvin Rivas DO/ modl JOB #: [id number] CC: Delvin Rivas DO, Attending Physician [facility]-[place] Physician, Family Physician
== END 2016-07-31 16:35 | disposition expired | DRG 853 ==
LOC: ER 13:14 → 5MS 16:40 → 3ICU 16:40
PROVIDERS: ADMIT Internal Medicine Infectious Disease
PROC: 0DN80ZZ Release Small Intestine, Open Approach (ICD-10-PCS; principal; 2016-07-27)
PROC: 0DTF0ZZ Resection of Right Large Intestine, Open Approach (ICD-10-PCS; principal; 2016-07-27)
PROC: 0D1M074 Bypass Descending Colon to Cutaneous with Autologous Tissue Substitute, Open Approach (ICD-10-PCS; principal; 2016-07-27)
PROC: 0DTJ0ZZ Resection of Appendix, Open Approach (ICD-10-PCS; principal; 2016-07-27)
PROC: 0DTN0ZZ Resection of Sigmoid Colon, Open Approach (ICD-10-PCS; principal; 2016-07-27)
PROC: 02HV33Z Insertion of Infusion Device into Superior Vena Cava, Percutaneous Approach (ICD-10-PCS; 2016-07-28)
PROC: 30233N1 Transfusion of Nonautologous Red Blood Cells into Peripheral Vein, Percutaneous Approach (ICD-10-PCS; 2016-07-29)
PROC: 3E0336Z Introduction of Nutritional Substance into Peripheral Vein, Percutaneous Approach (ICD-10-PCS; 2016-07-29)
DX: A41.9 Sepsis, unspecified organism (principal); R65.21 Severe sepsis with septic shock; I21.4 Non-ST elevation (NSTEMI) myocardial infarction; Z51.5 Encounter for palliative care; K72.00 Acute and subacute hepatic failure without coma; N17.9 Acute kidney failure, unspecified; I48.91 Unspecified atrial fibrillation; E87.0 Hyperosmolality and hypernatremia; K57.20 Diverticulitis of large intestine with perforation and abscess without bleeding; F05 Delirium due to known physiological condition; E46 Unspecified protein-calorie malnutrition; R09.02 Hypoxemia; D50.0 Iron deficiency anemia secondary to blood loss (chronic); I10 Essential (primary) hypertension; M06.9 Rheumatoid arthritis, unspecified; K66.0 Peritoneal adhesions (postprocedural) (postinfection); I25.10 Atherosclerotic heart disease of native coronary artery without angina pectoris; G47.30 Sleep apnea, unspecified; L40.9 Psoriasis, unspecified; H54.8 Legal blindness, as defined in USA; M10.9 Gout, unspecified; E03.9 Hypothyroidism, unspecified; Z79.52 Long term (current) use of systemic steroids; Z95.1 Presence of aortocoronary bypass graft; Z66 Do not resuscitate

== ENCOUNTER → 2016-07-27 | Outpatient (CLI) | payer MEDICARE, OTHER | END | disposition home or self-care (01) | LOC: RAD.S 08:45 | DX: R10.9 Unspecified abdominal pain (principal) ==